=== PATIENT | female | born 1995 | race Caucasian/White ===

== ENCOUNTER 2024-02-03 14:46 | Emergency (ER) | payer MEDICAID ==
[~2024-02-03] VITALS: Ht 170.2 cm; Wt 86.1 kg
[2024-02-03 15:08] VITALS: BP 107/64; PULSE 91; RESP 15; TEMP 97.8; O2SAT 99
[2024-02-03] MEDS ORDERED: AZIT250T12 MT (16:35)
[2024-02-03] MEDS ORDERED: CEPH500T MT (16:37)
== END 2024-02-03 17:01 | disposition home or self-care (01) ==
LOC: ER 14:46
DX: I88.9 Nonspecific lymphadenitis, unspecified (principal); A28.1 Cat-scratch disease; J45.909 Unspecified asthma, uncomplicated; F41.9 Anxiety disorder, unspecified; F32.A Depression, unspecified
CPT/HCPCS: 93971; 99284

== ENCOUNTER 2024-02-09 15:21 | Emergency (ER) | payer MEDICAID ==
[~2024-02-09] VITALS: Ht 170.2 cm; Wt 86.6 kg
[~2024-02-09 15:21] MED LIST: AZIT250T12 MT; CEPH500T MT
[2024-02-09 15:37] VITALS: BP 122/74; PULSE 86; RESP 16; TEMP 98.9; O2SAT 98
[2024-02-09] MEDS ORDERED: DOXY100C74 MT (16:22)
== END 2024-02-09 16:21 ==
LOC: ER 15:21
DX: A74.9 Chlamydial infection, unspecified (principal); J45.909 Unspecified asthma, uncomplicated; F41.9 Anxiety disorder, unspecified; F32.9 Major depressive disorder, single episode, unspecified
CPT/HCPCS: 81025; 99283

== ENCOUNTER 2024-08-14 09:21 | Emergency (ER) | payer MEDICAID ==
[~2024-08-14] VITALS: Ht 170.2 cm; Wt 83.0 kg
[~2024-08-14 09:21] MED LIST changes: +DOXY-461 MT
[2024-08-14 09:28] VITALS: TEMP 36.9; O2SAT 100
[2024-08-14] MEDS: MAGNESIUM/ALUMINUM HYDROXIDE/SIMETHICONE 30ML UDC PO STA (09:54)
[2024-08-14] MEDS: ONDANSETRON HCL 4MG/2ML INJ IV STA (09:54)
[2024-08-14] MEDS: ACETAMINOPHEN 325MG TABLET PO STA (09:54)
[2024-08-14] MEDS: SODIUM CHLORIDE 0.9% 1,000 ML IV ONE (10:00)
[2024-08-14 10:01] LABS: BASOPHILS % 0.2 % (0.0-2.0); EOSINOPHILS % 0.5 % (0.0-5.0); HEMATOCRIT. 44.7 % (36.0-48.0); HEMOGLOBIN. 15.5 g/dL (12.0-16.0); LYMPHOCYTES % 21.6 % (20.0-50.0); MEAN CORPUSCULAR HEMOGLOBIN 32.4 pg (28.0-32.0); MEAN CORPUSCULAR HGB CONC 34.6 g/dL (31.0-37.0); MEAN CORPUSCULAR VOLUME 93.8 fL (81.0-99.0); MEAN PLATELET VOLUME 7.7 fl (7.4-10.4); MONOCYTES % 8.4 % (2.0-8.0); NEUTROPHILS % 69.3 % (40.0-76.0); PLATELET 344 x1000/uL (130-400); RED BLOOD CELL COUNT 4.77 mill/uL (4.2-5.4); RED CELL DISTRIBUTION WIDTH 13.3 % (11.6-14.6); WHITE BLOOD COUNT 9.8 x1000/uL (4.5-11.0)
[2024-08-14 10:10] LABS: CHLORIDE 105 mEq/L (98-107); POTASSIUM 4.1 mEq/L (3.5-5.1); SODIUM 137 mEq/L (136-145)
[2024-08-14 10:11] LABS: PROTHROMBIN TIME 10.8 sec (9.6-11.0)
[2024-08-14 10:12] LABS: CARBON DIOXIDE 18 mEq/L (21-32)
[2024-08-14 10:13] LABS: CALCIUM 9.8 mg/dL (8.7-10.4); HCG SCREEN NEGATIVE
[2024-08-14 10:17] LABS: CREATININE 0.8 mg/dL (0.6-1.0); GLUCOSE 104 mg/dL (70-105)
[2024-08-14] MEDS: KETOROLAC 30MG/ML VIAL IV STA (10:17)
[2024-08-14 10:18] LABS: UREA NITROGEN BLOOD 14 mg/dL (9-23)
[2024-08-14 10:19] LABS: ALANINE AMINOTRANSFERASE 10 IU/L (10-49); ALBUMIN 5.2 g/dL (3.2-4.8); ASPARTATE AMINOTRANSFERASE 17 IU/L (<34)
[2024-08-14 10:20] LABS: BILIRUBIN DIRECT 0.2 mg/dL (<=3.0); BILIRUBIN TOTAL 0.8 mg/dL (0.1-1.0); PROTEIN TOTAL 8.3 g/dL (6.0-8.3)
[2024-08-14] MEDS ORDERED: ONDA-239 PO (11:28)
[2024-08-14 11:35] VITALS: BP 127/82; PULSE 86; RESP 18; O2SAT 100
== END 2024-08-14 12:13 | disposition home or self-care (01) ==
LOC: ER 09:21
DX: R10.84 Generalized abdominal pain (principal); R11.2 Nausea with vomiting, unspecified; J45.909 Unspecified asthma, uncomplicated; F41.9 Anxiety disorder, unspecified; F32.A Depression, unspecified; Z79.899 Other long term (current) drug therapy
CPT/HCPCS: 99284; 96374; 96361; 96375; 80076; 80048; 84703; 83690; 85025; 85610; 36415; J1885; J2405; J7030

== ENCOUNTER 2025-01-14 14:18 | Emergency (ER) | payer MEDICAID ==
[~2025-01-14] VITALS: Ht 170.2 cm; Wt 75.2 kg
[~2025-01-14 14:18] MED LIST changes: +ONDA-239 PO
[2025-01-14 17:43] LABS: BASOPHILS % 0.3 % (0.0-2.0); EOSINOPHILS % 0.2 % (0.0-5.0); HEMATOCRIT. 43.6 % (36.0-48.0); HEMOGLOBIN. 14.7 g/dL (12.0-16.0); LYMPHOCYTES % 12.9 % (20.0-50.0); MEAN PLATELET VOLUME 8.1 fl (7.4-10.4); MONOCYTES % 5.7 % (2.0-8.0); NEUTROPHILS % 80.9 % (40.0-76.0); PLATELET 353 x1000/uL (130-400); RED BLOOD CELL COUNT 4.54 mill/uL (4.2-5.4); RED CELL DISTRIBUTION WIDTH 13.0 % (11.6-14.6)
[2025-01-14 18:00] LABS: CREATININE 0.9 mg/dL (0.6-1.0)
[2025-01-14 18:01] LABS: UREA NITROGEN BLOOD 11 mg/dL (9-23)
[2025-01-14 18:02] LABS: ASPARTATE AMINOTRANSFERASE 19 IU/L (<34)
[2025-01-14 18:03] LABS: BILIRUBIN DIRECT 0.1 mg/dL (<=3.0); BILIRUBIN TOTAL 0.7 mg/dL (0.1-1.0); PROTEIN TOTAL 8.1 g/dL (6.0-8.3)
[2025-01-14 18:11] LABS: HCG SCREEN NEGATIVE
[2025-01-14 19:43] LABS: GLUCOSE URINE NEGATIVE (NEGATIVE); KETONES URINE 4+ (NEGATIVE); LEUKOCYTE ESTERASE URINE TRACE (NEGATIVE); NITRITE URINE NEGATIVE (NEGATIVE); OCCULT BLOOD URINE NEGATIVE (NEGATIVE); PH URINE 5.5 (4.5-8.0); PROTEIN URINE 2+ (NEGATIVE); SPECIFIC GRAVITY URINE 1.038 (1.005-1.030); UROBILINOGEN URINE 1.0 E.U./dL (0.2-1.0)
[2025-01-14 20:11] LABS: COLOR URINE YELLOW (YELLOW)
[2025-01-14 20:12] LABS: CLARITY URINE SL HAZY (CLEAR)
[2025-01-14 20:13] LABS: BACTERIA URINE TRACE; MUCUS URINE 2+ /lpf (< = 2+); RBC URINE NONE SEEN /hpf (0-2); SQUAMOUS EPITHELIAL CELL URINE 1+ /lpf (RARE/1+); WBC URINE 0-2 /hpf (0-2)
[2025-01-14] MEDS ORDERED: ONDA4TAB50 PO (20:32)
[2025-01-14] MEDS: ACETAMINOPHEN 325MG TABLET PO ONE (20:43)
[2025-01-14] MEDS: ONDANSETRON 4MG ODT PO ONE (20:43)
[2025-01-14 21:30] VITALS: BP 131/62; PULSE 82; RESP 17; TEMP 36.9; O2SAT 99
== END 2025-01-14 21:31 | disposition home or self-care (01) ==
LOC: ER 14:18
DX: R11.2 Nausea with vomiting, unspecified (principal); R19.7 Diarrhea, unspecified; R10.9 Unspecified abdominal pain; F12.90 Cannabis use, unspecified, uncomplicated; F32.A Depression, unspecified; F41.9 Anxiety disorder, unspecified; J45.909 Unspecified asthma, uncomplicated; Z79.899 Other long term (current) drug therapy
CPT/HCPCS: 80076; 80048; 81003; 81025; 80320; 84703; 83690; 85025; 36415; 99283; Q0162; G0480

== ENCOUNTER 2025-01-20 09:35 | Emergency (ER) | payer MEDICAID ==
[~2025-01-20] VITALS: Ht 172.7 cm; Wt 68.0 kg
[~2025-01-20 09:35] MED LIST changes: +ONDA4TAB50 PO
[2025-01-20 09:46] VITALS: O2SAT 100
[2025-01-20] MEDS: ACETAMINOPHEN 325MG TABLET PO ONE (10:53)
[2025-01-20] MEDS: ONDANSETRON 4MG ODT PO ONE (10:53)
[2025-01-20 11:09] LABS: BASOPHILS % 0.4 % (0.0-2.0); EOSINOPHILS % 0.6 % (0.0-5.0); HEMATOCRIT. 43.9 % (36.0-48.0); HEMOGLOBIN. 15.2 g/dL (12.0-16.0); LYMPHOCYTES % 29.8 % (20.0-50.0); MEAN PLATELET VOLUME 8.0 fl (7.4-10.4); MONOCYTES % 6.0 % (2.0-8.0); NEUTROPHILS % 63.2 % (40.0-76.0); PLATELET 337 x1000/uL (130-400); RED BLOOD CELL COUNT 4.57 mill/uL (4.2-5.4); RED CELL DISTRIBUTION WIDTH 13.0 % (11.6-14.6)
[2025-01-20 11:27] LABS: CREATININE 0.8 mg/dL (0.6-1.0); UREA NITROGEN BLOOD < 5 mg/dL (9-23)
[2025-01-20 11:29] LABS: ASPARTATE AMINOTRANSFERASE 16 IU/L (<34); BILIRUBIN DIRECT 0.1 mg/dL (<=3.0); BILIRUBIN TOTAL 0.5 mg/dL (0.1-1.0); PROTEIN TOTAL 7.7 g/dL (6.0-8.3)
[2025-01-20 11:32] LABS: CLARITY URINE CLEAR (CLEAR); COLOR URINE PALE YELLOW (YELLOW); GLUCOSE URINE NEGATIVE (NEGATIVE); KETONES URINE TRACE (NEGATIVE); OCCULT BLOOD URINE TRACE (NEGATIVE); PH URINE 8.5 (4.5-8.0); PROTEIN URINE NEGATIVE (NEGATIVE); SPECIFIC GRAVITY URINE 1.006 (1.005-1.030)
[2025-01-20 11:33] LABS: LEUKOCYTE ESTERASE URINE NEGATIVE (NEGATIVE); NITRITE URINE NEGATIVE (NEGATIVE); UROBILINOGEN URINE 0.2 E.U./dL (0.2-1.0)
[2025-01-20 11:42] LABS: HCG SCREEN NEGATIVE
[2025-01-20] MEDS ORDERED: ONDA-239 PO (11:48)
[2025-01-20 11:54] LABS: BACTERIA URINE NONE SEEN; RBC URINE 0-2 /hpf (0-2); SQUAMOUS EPITHELIAL CELL URINE 1+ /lpf (RARE/1+); WBC URINE 0-2 /hpf (0-2); YEAST URINE NONE SEEN
[2025-01-20] MEDS: DEXAMETHASONE 10 MG/ML VIAL IV ONE (11:56)
[2025-01-20] MEDS: METOCLOPRAMIDE HCL 10MG TABLET PO ONE (11:56)
[2025-01-20 12:04] VITALS: BP 146/95; PULSE 84; RESP 15; TEMP 36.7; O2SAT 100
[2025-01-20 13:28] LABS: INFLUENZA TYPE A Presumptive Negative (Pres. Neg.); INFLUENZA TYPE B Presumptive Negative (Pres. Neg.); RESPIRATORY SYNCYTIAL VIRUS Not Detected (Not Detectd)
== END 2025-01-20 12:07 | disposition home or self-care (01) ==
LOC: ER 09:35
DX: R11.2 Nausea with vomiting, unspecified (principal); J45.909 Unspecified asthma, uncomplicated; F41.9 Anxiety disorder, unspecified; F32.A Depression, unspecified; F12.90 Cannabis use, unspecified, uncomplicated; Z79.899 Other long term (current) drug therapy; Z20.822 Contact with and (suspected) exposure to COVID-19
CPT/HCPCS: 99284; 96374; 87426; 80076; 80048; 81003; 81025; 84703; 83690; 83735; 85025; 87420; 87804 ×2; 36415; J8597; Q0162; J1100